=== PATIENT | male | born 1995 | race Two or more races ===

== ENCOUNTER 2022-03-21 09:53 | Emergency (ER) | payer SELFPAY ==
[~2022-03-21] VITALS: Ht 188 cm; Wt 138.0 kg
[2022-03-21] MEDS ORDERED: KETOROLAC TROMETH 60MG/2ML VIAL IM ONE (13:30)
[2022-03-21] MEDS ORDERED: HYDROcodone-ACET 10/325MG TAB PO ONE (13:30)
[2022-03-21] MEDS ORDERED: HYDR-4902 PO (13:37)
[2022-03-21] MEDS ORDERED: IBUP800T26 PO (13:37)
[2022-03-21] MEDS ORDERED: AMOX-277 PO (13:37)
[2022-03-21 13:45] VITALS: BP 156/106
== END 2022-03-21 13:38 | disposition home or self-care (01) ==
LOC: ER 09:53
DX: K04.7 Periapical abscess without sinus (principal)